=== PATIENT | male | born 1945 | race Caucasian/White ===

== ENCOUNTER 2021-10-06 10:57 | Emergency (ER) | payer MEDICARE, OTHER ==
[~2021-10-06] VITALS: Ht 160 cm; Wt 68.0 kg
[2021-10-06] MEDS ORDERED: HYDROCODONE/ACETAMINOPHEN 5/325 MG TAB ONE (12:14)
[2021-10-06] MEDS ORDERED: CYCLOBENZAPRINE HCL 10 MG TABLET ONE (12:14)
[2021-10-06 12:23] LABS: BASOPHILS % (AUTO) 0.8 % (0.0-5.0); EOSINOPHILS % (AUTO) 1.9 % (0.0-8.0); HEMATOCRIT 31.1 % (42-54); LYMPHOCYTES % (AUTO) 19.8 % (21.0-51.0); MEAN CORPUSCULAR HEMOGLOBIN 24.7 pg (27.0-33.0); MEAN CORPUSCULAR HGB CONC 31.2 g/dL (32.0-36.0); MEAN CORPUSCULAR VOLUME 79.1 fL (79-99); MONOCYTES % (AUTO) 13.5 % (3.0-13.0); NEUTROPHILS % (AUTO) 63.7 % (40.0-77.0); PLATELET COUNT (AUTO) 194 K/uL (130-400); RED BLOOD CELL COUNT(AUTO) 3.93 MIL/uL (4.50-6.20); RED CELL DISTRIBUTION WIDTH 17.6 % (11.0-15.5); WHITE BLOOD COUNT (AUTO) 6.5 K/uL (4.8-10.8)
[2021-10-06 12:29] LABS: CREATININE 0.7 mg/dL (0.5-1.5); POTASSIUM 4.2 mmol/L (3.5-5.1)
[2021-10-06] MEDS ORDERED: AZITHROMYCIN 250 MG TABLET PO ONE ×2 (12:30→12:52)
[2021-10-06] MEDS ORDERED: CEFTRIAXONE 1G VIAL IVP ONE (12:30)
[2021-10-06] MEDS ORDERED: HYDROCODONE/ACETAMINOPHEN 5/325 MG TAB PO ONE (12:30)
[2021-10-06] MEDS ORDERED: CYCLOBENZAPRINE HCL 10 MG TABLET PO ONE (12:30)
[2021-10-06 12:34] LABS: ALBUMIN 3.5 g/dL (3.5-5.0); BILIRUBIN,TOTAL 0.3 mg/dL (0.2-1.0); TOTAL PROTEIN, SERUM 7.3 g/dL (6.0-8.3)
[2021-10-06] MEDS ORDERED: FUROSEMIDE 40MG VIAL ONE (12:51)
[2021-10-06] MEDS ORDERED: CEFTRIAXONE 1G VIAL ONE (12:51)
[2021-10-06] MEDS ORDERED: FUROSEMIDE 40MG VIAL IV ONE (13:00)
[2021-10-06] MEDS ORDERED: IPRATROPIUM/ALBUTEROL SULFATE 3 ML SOLUTION IH ONE (13:00)
[2021-10-06 13:35] LABS: APPEARANCE,URINE Clear (CLEAR); BILIRUBIN,URINE Negative (NEGATIVE); COLOR,URINE Yellow (YELLOW); GLUCOSE, URINE (UA) Negative (NEGATIVE); KETONES,URINE Negative (NEGATIVE); LEUKOCYTE ESTERASE ,URINE Negative (NEGATIVE); NITRATE,URINE Negative (NEGATIVE); OCCULT BLOOD,URINE Negative (NEGATIVE); PROTEIN,URINE Negative (NEGATIVE); UROBILINOGEN,URINE 0.2 mg/dL (0.2-1.0)
[2021-10-06 13:45] VITALS: BP 115/52
[2021-10-06] MEDS ORDERED: ALBU8.5H8 IH (15:03)
[2021-10-06] MEDS ORDERED: AMOX1TAB16 PO (15:03)
== END 2021-10-06 15:25 | disposition home or self-care (01) ==
LOC: EDH 10:57
DX: S20.211A Contusion of right front wall of thorax, initial encounter (principal); J47.9 Bronchiectasis, uncomplicated; R91.8 Other nonspecific abnormal finding of lung field; J84.10 Pulmonary fibrosis, unspecified; E11.9 Type 2 diabetes mellitus without complications; Z85.46 Personal history of malignant neoplasm of prostate; Z89.611 Acquired absence of right leg above knee; Z89.612 Acquired absence of left leg above knee; Z90.49 Acquired absence of other specified parts of digestive tract; Z95.1 Presence of aortocoronary bypass graft; X58.XXXA Exposure to other specified factors, initial encounter; Y93.89 Activity, other specified; Y92.89 Other specified places as the place of occurrence of the external cause; Y99.8 Other external cause status
CPT/HCPCS: 36415; 71045; 71250; 80053; 81003; 83880; 84484; 85025; 93005; 94640; 96374; 96375; 99285; J0696; J1940

== ENCOUNTER 2022-08-06 08:41 | Emergency (ER) | payer OTHER ==
[~2022-08-06 08:41] MED LIST: ALBU8.5H8 IH; AMOX1TAB16 PO
[2022-08-06] MEDS ORDERED: ALBUTEROL INHALER 90MCG/INH IH ONE (09:00)
[2022-08-06] MEDS ORDERED: SOLU-MEDROL 125MG VIAL IVP ONE (09:00)
[2022-08-06 09:10] LABS: BASOPHILS % (AUTO) 0.4 % (0.0-5.0); EOSINOPHILS % (AUTO) 3.7 % (0.0-8.0); HEMATOCRIT 36.3 % (42-54); LYMPHOCYTES % (AUTO) 16.1 % (21.0-51.0); MEAN CORPUSCULAR HEMOGLOBIN 28.2 pg (27.0-33.0); MEAN CORPUSCULAR HGB CONC 32.2 g/dL (32.0-36.0); MEAN CORPUSCULAR VOLUME 87.5 fL (79-99); MONOCYTES % (AUTO) 7.7 % (3.0-13.0); NEUTROPHILS % (AUTO) 71.5 % (40.0-77.0); PLATELET COUNT (AUTO) 164 K/uL (130-400); RED BLOOD CELL COUNT(AUTO) 4.15 MIL/uL (4.50-6.20); RED CELL DISTRIBUTION WIDTH 14.6 % (11.0-15.5); WHITE BLOOD COUNT (AUTO) 6.8 K/uL (4.8-10.8)
[2022-08-06 09:34] LABS: CREATININE 0.9 mg/dL (0.5-1.5); POTASSIUM 4.3 mmol/L (3.5-5.1)
[2022-08-06 09:38] LABS: ALBUMIN 3.5 g/dL (3.5-5.0)
[2022-08-06] MEDS ORDERED: PRED50TA2 PO (11:36)
[2022-08-06] MEDS ORDERED: LEVO750T68 PO (11:36)
[2022-08-06 11:37] VITALS: BP 131/61
[2022-08-07] MEDS ORDERED: TAMS-1 PO (00:02)
[2022-08-07] MEDS ORDERED: METF-446 PO (00:02)
[2022-08-07] MEDS ORDERED: METO25TA6 PO (00:02)
[2022-08-07] MEDS ORDERED: LEVO112C4 PO (00:02)
[2022-08-07] MEDS ORDERED: FLUO20TA29 PO (00:02)
[2022-08-07] MEDS ORDERED: ATOR40TA69 PO (00:02)
[2022-08-07] MEDS ORDERED: AEC81 PO (00:02)
[2022-08-07] MEDS ORDERED: FERR-72 PO (00:02)
[2022-08-07] MEDS ORDERED: PRAS10TA9 PO (00:02)
[2022-08-07] MEDS ORDERED: GABA600T10 PO (00:02)
[2022-08-07] MEDS ORDERED: ISOS30TA11 PO (00:02)
== END 2022-08-06 11:47 | disposition home or self-care (01) ==
LOC: EDH 08:41
DX: J44.1 Chronic obstructive pulmonary disease with (acute) exacerbation (principal); J18.9 Pneumonia, unspecified organism; E11.9 Type 2 diabetes mellitus without complications; Z20.822 Contact with and (suspected) exposure to COVID-19; Z95.1 Presence of aortocoronary bypass graft; Z95.5 Presence of coronary angioplasty implant and graft; Z90.49 Acquired absence of other specified parts of digestive tract; Z85.118 Personal history of other malignant neoplasm of bronchus and lung; Z98.890 Other specified postprocedural states
CPT/HCPCS: 99285; 96374; 71045; 87635; 84484; 80053; 83880; 85025; 87040 ×2; 87804 ×2; 83605; 36415; 93005; C9803; J2930

== ENCOUNTER 2022-08-06 19:42 | Inpatient (IN) | payer OTHER ==
[~2022-08-06] VITALS: Ht 99.1 cm; Wt 74.4 kg
[~2022-08-06 19:42] MED LIST changes: +LEVO750T68 PO; +PRED50TA2 PO
[2022-08-06] MEDS ORDERED: FUROSEMIDE 40MG VIAL IV ONE (20:00)
[2022-08-06] MEDS ORDERED: SOLU-MEDROL 125MG VIAL IVP ONE (20:00)
[2022-08-06] MEDS ORDERED: IPRATROPIUM/ALBUTEROL SULFATE 3 ML SOLUTION IH ONE (20:00)
[2022-08-06] MEDS ORDERED: FUROSEMIDE 40MG VIAL ONE (20:03)
[2022-08-06 20:06] LABS: BASOPHILS % (AUTO) 0.1 % (0.0-5.0); HEMATOCRIT 34.4 % (42-54); LYMPHOCYTES % (AUTO) 6.1 % (21.0-51.0); MEAN CORPUSCULAR HEMOGLOBIN 28.4 pg (27.0-33.0); MEAN CORPUSCULAR HGB CONC 33.1 g/dL (32.0-36.0); MEAN CORPUSCULAR VOLUME 85.6 fL (79-99); MONOCYTES % (AUTO) 1.9 % (3.0-13.0); NEUTROPHILS % (AUTO) 91.2 % (40.0-77.0); PLATELET COUNT (AUTO) 217 K/uL (130-400); RED BLOOD CELL COUNT(AUTO) 4.02 MIL/uL (4.50-6.20); RED CELL DISTRIBUTION WIDTH 14.6 % (11.0-15.5); WHITE BLOOD COUNT (AUTO) 7.5 K/uL (4.8-10.8)
[2022-08-06 20:16] LABS: INR 0.97 (0.85-1.15); PROTHROMBIN TIME 10.6 SEC (9.6-11.6)
[2022-08-06 20:17] LABS: PARTIAL THROMBOPLASTIN TIME 24.3 SEC (26.3-35.5)
[2022-08-06 20:23] LABS: CREATININE 1.3 mg/dL (0.5-1.5); POTASSIUM 4.2 mmol/L (3.5-5.1)
[2022-08-06 20:33] LABS: ALBUMIN 3.5 g/dL (3.5-5.0); TOTAL PROTEIN, SERUM 7.1 g/dL (6.0-8.3)
[2022-08-06] MEDS ORDERED: HEPARIN 25,000 UNITS/250ML D5W 250 ML IV PRN (21:00)
[2022-08-06] MEDS: MORPHINE 2 MG SYG ONE ×2 (21:00→22:04)
[2022-08-06] MEDS ORDERED: HEPARIN 5,000 UNIT VIAL IV ONE (21:00)
[2022-08-06] MEDS ORDERED: ONDANSETRON 4MG INJ IVP PRN (21:00)
[2022-08-06] MEDS ORDERED: CEFTRIAXONE 1G VIAL IVP SCH (21:00)
[2022-08-06] MEDS ORDERED: ASPIRIN 81MG CHEW TAB PO ONE (21:30)
[2022-08-06] MEDS ORDERED: TICAGRELOR 90 MG TABLET ONE (21:41)
[2022-08-06 21:56] LABS: APPEARANCE,URINE CLEAR (CLEAR); BILIRUBIN,URINE NEGATIVE (NEGATIVE); COLOR,URINE COLORLESS (YELLOW); GLUCOSE, URINE (UA) 30 mg/dL (NEGATIVE); KETONES,URINE NEGATIVE (NEGATIVE); LEUKOCYTE ESTERASE ,URINE NEGATIVE Leu/uL (NEGATIVE); NITRATE,URINE NEGATIVE (NEGATIVE); OCCULT BLOOD,URINE NEGATIVE (NEGATIVE); PROTEIN,URINE NEGATIVE (NEGATIVE); UROBILINOGEN,URINE 0.2 mg/dL (0.2-1.0)
[2022-08-06] MEDS ORDERED: MORPHINE 4 MG SYG IM ONE (22:00)
[2022-08-06 22:01] LABS: MUCUS,URINE RARE LPF (None Seen); WBC,URINE 0-1 /HPF (0-1)
[2022-08-06] MEDS: ATORVASTATIN 40 MG TABLET PO SCH (22:05)
[2022-08-06] MEDS: AZITHROMYCIN 500MG+NS 250ML IVPB SCH (22:05)
[2022-08-06] MEDS: FAMOTIDINE 20MG VIAL IV SCH (22:05)
[2022-08-06] MEDS: TICAGRELOR 90 MG TABLET PO SCH (22:07)
[2022-08-06] MEDS ORDERED: SODIUM CHLORIDE FOR INHALATION 3 ML VIAL.NEB. IH ONE (23:30)
[2022-08-06] MEDS: IPRATROPIUM/ALBUTEROL SULFATE 3 ML SOLUTION IH SCH ×2 (23:31→23:36)
[2022-08-06 23:46] VITALS: BP 112/66
[2022-08-07] MEDS ORDERED: FLUO20TA29 PO (00:02)
[2022-08-07] MEDS ORDERED: PRAS10TA9 PO (00:02)
[2022-08-07] MEDS ORDERED: LEVO112C4 PO (00:02)
[2022-08-07] MEDS ORDERED: AEC81 PO (00:02)
[2022-08-07] MEDS ORDERED: ATOR40TA69 PO (00:02)
[2022-08-07] MEDS ORDERED: ISOS30TA11 PO (00:02)
[2022-08-07] MEDS ORDERED: GABA600T10 PO (00:02)
[2022-08-07] MEDS ORDERED: METF-446 PO (00:02)
[2022-08-07] MEDS ORDERED: FERR-72 PO (00:02)
[2022-08-07] MEDS ORDERED: TAMS-1 PO (00:02)
[2022-08-07] MEDS ORDERED: METO25TA6 PO (00:02)
[2022-08-07] MEDS ORDERED: NITROGLYCERIN 0.4 MG SL TAB SL PRN (01:00)
[2022-08-07] MEDS ORDERED: GLUCAGON 1MG KIT 1 MG ML IM PRN (01:00)
[2022-08-07] MEDS ORDERED: DEXTROSE 50%-WATER 50 ML DISP.SYRIN IV PRN (01:00)
[2022-08-07 03:02] LABS: HEMOGLOBIN A1C 6.5 % (4.0-6.0)
[2022-08-07 04:39] VITALS: BP 99/66
[2022-08-07] MEDS: INSULIN HUMULIN R 100 UNIT/ML 3ML SQ SCH ×4 (06:09→20:36)
[2022-08-07] MEDS: IPRATROPIUM/ALBUTEROL SULFATE 3 ML SOLUTION IH SCH ×5 (06:25→22:42)
[2022-08-07] MEDS: ASPIRIN 81 MG EC TAB PO SCH (08:16)
[2022-08-07] MEDS: SOLU-MEDROL 40MG VIAL IVP SCH ×2 (08:22→21:06)
[2022-08-07] MEDS: FAMOTIDINE 20MG VIAL IV SCH ×2 (08:22→21:06)
[2022-08-07 08:29] VITALS: BP 106/65
[2022-08-07 09:37] LABS: HEMATOCRIT 35.9 % (42-54); MEAN CORPUSCULAR HEMOGLOBIN 28.5 pg (27.0-33.0); MEAN CORPUSCULAR HGB CONC 32.6 g/dL (32.0-36.0); MEAN CORPUSCULAR VOLUME 87.6 fL (79-99); RED BLOOD CELL COUNT(AUTO) 4.1 MIL/uL (4.50-6.20); RED CELL DISTRIBUTION WIDTH 14.7 % (11.0-15.5); WHITE BLOOD COUNT (AUTO) 17.7 K/uL (4.8-10.8)
[2022-08-07] MEDS: ALBUTEROL 0.083% 2.5 MG/3 ML INH IH SCH ×4 (10:13→21:37)
[2022-08-07 10:51] LABS: ABG BASE EXCESS -3.6 mmol/L (-2.0-3.0); ABG HCO3 20.2 mmol/L (21.0-28.0); ABG OXYGEN SATURATION 99.5 % (95.0-99.0); ABG PCO2 33 mmHg (35-48)
[2022-08-07 11:49] VITALS: BP 115/67
[2022-08-07] MEDS: HEPARIN 25,000 UNITS/250ML D5W 250 ML IV SCH (11:56)
[2022-08-07] MEDS ORDERED: VANCOMYCIN PROTOCOL PER PHARMACY IV SCH (12:00)
[2022-08-07] MEDS: IPRATROPIUM 0.5 MG/2.5 ML INH IH SCH ×3 (12:00→21:37)
[2022-08-07] MEDS: ACETAMINOPHEN 325 MG TAB PO PRN ×2 (12:15→21:06)
[2022-08-07] MEDS ORDERED: ZOSYN 3.375GM +NS 50ML IV SCH (13:00)
[2022-08-07] MEDS: ZOSYN 3.375GM +NS 50ML IV SCH (13:31)
[2022-08-07 16:02] LABS: CREATININE 1.2 mg/dL (0.5-1.5); POTASSIUM 4.5 mmol/L (3.5-5.1)
[2022-08-07 16:06] LABS: ALBUMIN 3.7 g/dL (3.5-5.0); MAGNESIUM 1.1 mg/dL (1.80-2.40); TOTAL PROTEIN, SERUM 7.5 g/dL (6.0-8.3)
[2022-08-07 16:26] VITALS: BP 133/51
[2022-08-07] MEDS ORDERED: VANCOMYCIN 1.25 GM/250 ML BAG 250 ML IV SCH (17:00)
[2022-08-07 19:46] VITALS: BP 125/69
[2022-08-07] MEDS: TICAGRELOR 90 MG TABLET PO SCH (20:49)
[2022-08-07] MEDS: ATORVASTATIN 40 MG TABLET PO SCH (21:06)
[2022-08-07] MEDS: METOPROLOL TARTRATE 25 MG TAB PO SCH (21:06)
[2022-08-07] MEDS: MAGNESIUM 2GM PREMIX 50ML 50 ML IV SCH (21:07)
[2022-08-07] MEDS: AZITHROMYCIN 500MG+NS 250ML IVPB SCH (21:07)
[2022-08-07 23:43] VITALS: BP 129/73
[2022-08-08] MEDS ORDERED: HYDROMORPHONE 0.5 MG SYG (0.5MG/0.5ML) IVP ONE
[2022-08-08 00:43] LABS: ABG BASE EXCESS -7.6 mmol/L (-2.0-3.0); ABG HCO3 19.2 mmol/L (21.0-28.0); ABG OXYGEN SATURATION 98.8 % (95.0-99.0); ABG PCO2 44 mmHg (35-48)
[2022-08-08] MEDS: ZOSYN 3.375GM +NS 50ML IV SCH ×2 (02:04→12:26)
[2022-08-08] MEDS: MAGNESIUM 2GM PREMIX 50ML 50 ML IV SCH (02:05)
[2022-08-08] MEDS: ALBUTEROL 0.083% 2.5 MG/3 ML INH IH SCH ×4 (02:13→23:17)
[2022-08-08 04:00] LABS: HEMATOCRIT 37.2 % (42-54); MEAN CORPUSCULAR HEMOGLOBIN 28.1 pg (27.0-33.0); MEAN CORPUSCULAR VOLUME 87.7 fL (79-99); RED BLOOD CELL COUNT(AUTO) 4.24 MIL/uL (4.50-6.20); RED CELL DISTRIBUTION WIDTH 15.1 % (11.0-15.5); WHITE BLOOD COUNT (AUTO) 24.3 K/uL (4.8-10.8)
[2022-08-08] MEDS ORDERED: LORAZEPAM 2 MG/ML 1 ML VIAL IVP ONE (04:00)
[2022-08-08] MEDS ORDERED: LORAZEPAM 2 MG/ML 1 ML VIAL ONE (04:03)
[2022-08-08 04:33] VITALS: BP 113/57
[2022-08-08] MEDS: IPRATROPIUM 0.5 MG/2.5 ML INH IH SCH ×4 (06:00→23:17)
[2022-08-08] MEDS: IPRATROPIUM/ALBUTEROL SULFATE 3 ML SOLUTION IH SCH ×4 (06:17→23:17)
[2022-08-08] MEDS: INSULIN HUMULIN R 100 UNIT/ML 3ML SQ SCH ×4 (07:30→20:46)
[2022-08-08] MEDS ORDERED: SODIUM BICARB 8.4% 50ML SYRING 150 MEQ in DEXTROSE 5%-WATER 1,000 ML IVP SCH (08:00)
[2022-08-08] MEDS ORDERED: SOLU-MEDROL 40MG VIAL IVP SCH (08:00)
[2022-08-08 08:14] VITALS: BP 128/72
[2022-08-08 08:17] LABS: ABG BASE EXCESS -1.2 mmol/L (-2.0-3.0); ABG HCO3 22.5 mmol/L (21.0-28.0); ABG OXYGEN SATURATION 95.2 % (95.0-99.0); ABG PCO2 35 mmHg (35-48)
[2022-08-08 08:51] LABS: ALBUMIN 3.6 g/dL (3.5-5.0); CREATININE 1.3 mg/dL (0.5-1.5); POTASSIUM 5.2 mmol/L (3.5-5.1)
[2022-08-08 08:52] LABS: TOTAL PROTEIN, SERUM 7.5 g/dL (6.0-8.3)
[2022-08-08] MEDS: ASPIRIN 81 MG EC TAB PO SCH (08:52)
[2022-08-08] MEDS: METOPROLOL TARTRATE 25 MG TAB PO SCH ×2 (08:52→20:29)
[2022-08-08] MEDS: FAMOTIDINE 20MG VIAL IV SCH ×2 (08:52→20:28)
[2022-08-08] MEDS: FUROSEMIDE 20MG VIAL IV SCH ×2 (08:52→20:29)
[2022-08-08] MEDS: HEPARIN 25,000 UNITS/250ML D5W 250 ML IV SCH (10:30)
[2022-08-08 11:39] VITALS: BP 130/78
[2022-08-08 16:04] VITALS: BP 142/76
[2022-08-08 19:36] VITALS: BP_SYST 112; BP_SYST 143; BP_DIAS 69; BP_DIAS 71
[2022-08-08] MEDS: TICAGRELOR 90 MG TABLET PO SCH (20:19)
[2022-08-08] MEDS: AZITHROMYCIN 500MG+NS 250ML IVPB SCH (20:28)
[2022-08-08] MEDS ORDERED: 0.9%NACL 50ML 50 ML IV ONE (21:56)
[2022-08-08] MEDS: ZOSYN 3.375GM +NS 50ML IVPB SCH (22:03)
[2022-08-08] MEDS: ATORVASTATIN 40 MG TABLET PO SCH (22:03)
[2022-08-08 23:21] VITALS: BP 105/57
[2022-08-09] MEDS ORDERED: HYDROMORPHONE 1 MG INJ IVP SCH
[2022-08-09 04:10] VITALS: BP 117/56
[2022-08-09 04:41] LABS: HEMATOCRIT 32.9 % (42-54); MEAN CORPUSCULAR HEMOGLOBIN 28.6 pg (27.0-33.0); MEAN CORPUSCULAR HGB CONC 32.5 g/dL (32.0-36.0); RED BLOOD CELL COUNT(AUTO) 3.74 MIL/uL (4.50-6.20); RED CELL DISTRIBUTION WIDTH 15.4 % (11.0-15.5); WHITE BLOOD COUNT (AUTO) 16.7 K/uL (4.8-10.8)
[2022-08-09] MEDS: ZOSYN 3.375GM +NS 50ML IVPB SCH ×3 (05:58→21:09)
[2022-08-09] MEDS: IPRATROPIUM 0.5 MG/2.5 ML INH IH SCH (06:00)
[2022-08-09] MEDS: ALBUTEROL 0.083% 2.5 MG/3 ML INH IH SCH (06:00)
[2022-08-09] MEDS: INSULIN HUMULIN R 100 UNIT/ML 3ML SQ SCH ×4 (06:21→21:00)
[2022-08-09] MEDS: IPRATROPIUM/ALBUTEROL SULFATE 3 ML SOLUTION IH SCH ×4 (06:46→23:10)
[2022-08-09 07:04] VITALS: BP 131/71
[2022-08-09] MEDS: ASPIRIN 81 MG EC TAB PO SCH (10:28)
[2022-08-09] MEDS: FAMOTIDINE 20MG VIAL IV SCH ×2 (10:29→21:09)
[2022-08-09] MEDS: METOPROLOL TARTRATE 25 MG TAB PO SCH ×2 (10:30→21:08)
[2022-08-09] MEDS: FUROSEMIDE 20MG VIAL IV SCH ×2 (10:30→21:08)
[2022-08-09] MEDS: PREDNISONE 20 MG TABLET PO SCH (10:30)
[2022-08-09] MEDS: ACETAMINOPHEN 325 MG TAB PO PRN ×2 (10:31→16:47)
[2022-08-09 12:26] VITALS: BP 136/74
[2022-08-09 16:18] VITALS: BP 131/70
[2022-08-09] MEDS: VANCOMYCIN 1.25 GM/250 ML BAG 250 ML IV SCH (16:32)
[2022-08-09] MEDS: APIXABAN 2.5 MG TABLET PO SCH (17:55)
[2022-08-09 19:06] VITALS: BP 119/72
[2022-08-09] MEDS ORDERED: APIXABAN 5 MG TABLET PO SCH ×2 (21:00)
[2022-08-09] MEDS ORDERED: METOPROLOL TARTRATE 25 MG TAB PO SCH (21:00)
[2022-08-09] MEDS: ATORVASTATIN 40 MG TABLET PO SCH (21:08)
[2022-08-09] MEDS: AZITHROMYCIN 500MG+NS 250ML IVPB SCH (21:09)
[2022-08-10 00:06] VITALS: BP 144/72
[2022-08-10] MEDS ORDERED: LORAZEPAM 2 MG/ML 1 ML VIAL ONE (01:18)
[2022-08-10] MEDS ORDERED: LORAZEPAM 2 MG/ML 1 ML VIAL IVP ONE (01:30)
[2022-08-10] MEDS: ACETAMINOPHEN 325 MG TAB PO PRN ×2 (01:41→02:47)
[2022-08-10] MEDS ORDERED: HALOPERIDOL INJ 5 MG/ML VIAL ONE (02:40)
[2022-08-10] MEDS ORDERED: HALOPERIDOL INJ 5 MG/ML VIAL IV ONE (03:00)
[2022-08-10 03:06] VITALS: BP 127/64
[2022-08-10] MEDS ORDERED: DEXMEDETOMIDINE 400MCG/NS100ML IV ONE (05:34)
[2022-08-10] MEDS: INSULIN HUMULIN R 100 UNIT/ML 3ML SQ SCH ×4 (05:37→21:00)
[2022-08-10] MEDS: ZOSYN 3.375GM +NS 50ML IVPB SCH ×3 (05:37→21:28)
[2022-08-10] MEDS: APIXABAN 2.5 MG TABLET PO SCH ×2 (05:37→17:08)
[2022-08-10] MEDS ORDERED: DEXMEDETOMIDINE 400MCG/NS100ML IV SCH (06:00)
[2022-08-10] MEDS: IPRATROPIUM/ALBUTEROL SULFATE 3 ML SOLUTION IH SCH ×2 (06:54→10:35)
[2022-08-10 07:23] LABS: BASOPHILS % (AUTO) 0.1 % (0.0-5.0); HEMATOCRIT 30.8 % (42-54); LYMPHOCYTES % (AUTO) 12.5 % (21.0-51.0); MEAN CORPUSCULAR HEMOGLOBIN 28.4 pg (27.0-33.0); MEAN CORPUSCULAR HGB CONC 33.1 g/dL (32.0-36.0); MEAN CORPUSCULAR VOLUME 85.8 fL (79-99); MONOCYTES % (AUTO) 12.5 % (3.0-13.0); NEUTROPHILS % (AUTO) 74.4 % (40.0-77.0); PLATELET COUNT (AUTO) 206 K/uL (130-400); RED BLOOD CELL COUNT(AUTO) 3.59 MIL/uL (4.50-6.20); WHITE BLOOD COUNT (AUTO) 10.4 K/uL (4.8-10.8)
[2022-08-10 08:01] VITALS: BP 139/74
[2022-08-10 08:23] LABS: ALBUMIN 3.1 g/dL (3.5-5.0); CREATININE 1.1 mg/dL (0.5-1.5); MAGNESIUM 2.2 mg/dL (1.80-2.40); POTASSIUM 3.4 mmol/L (3.5-5.1); TOTAL PROTEIN, SERUM 6.9 g/dL (6.0-8.3)
[2022-08-10] MEDS: METOPROLOL TARTRATE 25 MG TAB PO SCH ×2 (08:37→21:32)
[2022-08-10] MEDS: TICAGRELOR 90 MG TABLET PO SCH ×2 (08:37→21:31)
[2022-08-10] MEDS: FAMOTIDINE 20MG VIAL IV SCH ×2 (08:38→21:29)
[2022-08-10] MEDS: PREDNISONE 20 MG TABLET PO SCH (08:38)
[2022-08-10] MEDS: FUROSEMIDE 20MG VIAL IV SCH ×2 (08:39→21:29)
[2022-08-10] MEDS ORDERED: TICAGRELOR 90 MG TABLET PO SCH (09:00)
[2022-08-10] MEDS: SOLU-MEDROL 40MG VIAL IVP SCH ×3 (10:27→21:30)
[2022-08-10 12:26] VITALS: BP 134/68
[2022-08-10 12:53] LABS: ABG BASE EXCESS -0.9 mmol/L (-2.0-3.0); ABG HCO3 20.9 mmol/L (21.0-28.0); ABG OXYGEN SATURATION 95.9 % (95.0-99.0); ABG PCO2 28 mmHg (35-48)
[2022-08-10] MEDS: ZIPRASIDONE MESYLATE 20 MG/VIAL IM PRN ×2 (14:01→23:45)
[2022-08-10] MEDS ORDERED: ALBUTEROL 0.083% 2.5 MG/3 ML INH IH ONE (14:15)
[2022-08-10] MEDS: VANCOMYCIN 1.25 GM/250 ML BAG 250 ML IV SCH (16:40)
[2022-08-10 17:03] VITALS: BP 128/75
[2022-08-10 19:21] VITALS: BP 110/72
[2022-08-10] MEDS: ALBUTEROL 0.083% 2.5 MG/3 ML INH IH SCH ×2 (19:22→22:21)
[2022-08-10] MEDS: AZITHROMYCIN 500MG+NS 250ML IVPB SCH (21:30)
[2022-08-10] MEDS: ATORVASTATIN 40 MG TABLET PO SCH (21:31)
[2022-08-11 00:21] VITALS: BP 128/73
[2022-08-11] MEDS: ALBUTEROL 0.083% 2.5 MG/3 ML INH IH SCH ×4 (02:17→14:17)
[2022-08-11 03:21] VITALS: BP 139/65
[2022-08-11] MEDS: ZOSYN 3.375GM +NS 50ML IVPB SCH ×2 (05:44→13:00)
[2022-08-11] MEDS: APIXABAN 2.5 MG TABLET PO SCH (05:55)
[2022-08-11] MEDS: INSULIN HUMULIN R 100 UNIT/ML 3ML SQ SCH ×2 (05:55→12:00)
[2022-08-11] MEDS: ZIPRASIDONE MESYLATE 20 MG/VIAL IM PRN ×2 (06:10→10:51)
[2022-08-11 08:00] VITALS: BP 130/72
[2022-08-11] MEDS: TICAGRELOR 90 MG TABLET PO SCH (08:27)
[2022-08-11] MEDS: SOLU-MEDROL 40MG VIAL IVP SCH ×2 (08:28→13:14)
[2022-08-11] MEDS: FUROSEMIDE 20MG VIAL IV SCH (08:28)
[2022-08-11] MEDS: METOPROLOL TARTRATE 25 MG TAB PO SCH (08:28)
[2022-08-11] MEDS: FAMOTIDINE 20MG VIAL IV SCH (08:28)
[2022-08-11 08:57] LABS: BASOPHILS % (AUTO) 0.1 % (0.0-5.0); HEMATOCRIT 31.4 % (42-54); LYMPHOCYTES % (AUTO) 5.1 % (21.0-51.0); MEAN CORPUSCULAR HGB CONC 32.5 g/dL (32.0-36.0); MEAN CORPUSCULAR VOLUME 86.3 fL (79-99); MONOCYTES % (AUTO) 7.7 % (3.0-13.0); NEUTROPHILS % (AUTO) 86.5 % (40.0-77.0); NUCLEATED RED BLOOD CELLS 0.2 % (0.0-0.19); PLATELET COUNT (AUTO) 239 K/uL (130-400); RED BLOOD CELL COUNT(AUTO) 3.64 MIL/uL (4.50-6.20); RED CELL DISTRIBUTION WIDTH 15.4 % (11.0-15.5); WHITE BLOOD COUNT (AUTO) 9.6 K/uL (4.8-10.8)
[2022-08-11 09:16] LABS: ALBUMIN 3.1 g/dL (3.5-5.0); CREATININE 1.2 mg/dL (0.5-1.5); POTASSIUM 3.1 mmol/L (3.5-5.1); TOTAL PROTEIN, SERUM 6.7 g/dL (6.0-8.3)
[2022-08-11 11:42] VITALS: BP 125/67
== END 2022-08-11 15:25 | disposition hospice, home (50) | DRG 871 ==
LOC: EDH 19:42 → EDHIP 20:54 → 2AH 23:27
PROVIDERS: ADMIT Hospitalist; ATTEND Hospitalist
PROC: 5A09457 Assistance with Respiratory Ventilation, 24-96 Consecutive Hours, Continuous Positive Airway Pressure (ICD-10-PCS; principal; 2022-08-06)
DX: A41.9 Sepsis, unspecified organism (principal); G93.41 Metabolic encephalopathy; J15.9 Unspecified bacterial pneumonia; J96.01 Acute respiratory failure with hypoxia; I50.43 Acute on chronic combined systolic (congestive) and diastolic (congestive) heart failure; I21.A1 Myocardial infarction type 2; J44.1 Chronic obstructive pulmonary disease with (acute) exacerbation; J44.0 Chronic obstructive pulmonary disease with (acute) lower respiratory infection; I47.1 Supraventricular tachycardia; Z20.822 Contact with and (suspected) exposure to COVID-19; I11.0 Hypertensive heart disease with heart failure; E11.65 Type 2 diabetes mellitus with hyperglycemia; I25.10 Atherosclerotic heart disease of native coronary artery without angina pectoris; R65.20 Severe sepsis without septic shock; Z66 Do not resuscitate; I08.1 Rheumatic disorders of both mitral and tricuspid valves; Z51.5 Encounter for palliative care; Z79.82 Long term (current) use of aspirin; Z79.899 Other long term (current) drug therapy; Z85.118 Personal history of other malignant neoplasm of bronchus and lung; Z85.46 Personal history of malignant neoplasm of prostate; Z87.891 Personal history of nicotine dependence; Z89.611 Acquired absence of right leg above knee; Z89.612 Acquired absence of left leg above knee; Z90.49 Acquired absence of other specified parts of digestive tract; Z95.1 Presence of aortocoronary bypass graft; Z95.2 Presence of prosthetic heart valve; Z95.5 Presence of coronary angioplasty implant and graft
CPT/HCPCS: 36415; 36600; 71045; 71250; 80053; 80202; 81001; 82140; 82550; 82803; 82948; 83036; 83605; 83735; 83874; 84100; 84145; 84484; 85025; 85027; 85610; 85730; 87040; 87071; 87088; 87205; 87420; 87635; 87804; 87880; 93005; 93306; 94640; 94660; 94664; 94667; 94668; 96365; 96372; 96375; 96376; G0378; J0456; J0696; J1170; J1630; J1644; J1815; J1940; J2060; J2270; J2543; J2920; J2930; J3475; J3486; J3490; J7070